=== PATIENT | female | born 1995 | race Hispanic/Latino ===

== ENCOUNTER 2017-05-21 04:27 | Inpatient (IN) | payer MEDICAID ==
[~2017-05-21] VITALS: Ht 157.5 cm; Wt 61.2 kg
[~2017-05-21 04:27] MED LIST: ACET-171 PO; FERR-83 PO; Ibuprofen PO; METO-301 PO; PREN1TAB25 PO
[2017-05-21] MEDS ORDERED: Lactated Ringer's 1,000 ML IV PRN (04:51)
[2017-05-21] MEDS ORDERED: Sodium Chloride LOK Flush 10 mL Syringe IVFLUSH PRN (04:55)
[2017-05-21] MEDS ORDERED: fentaNYL-PF 50 mCg/mL 2 mL Inj IVPUSH PRN (04:55)
[2017-05-21] MEDS ORDERED: Ondansetron 2 mg/mL 2 mL Inj IVPUSH PRN ×2 (04:55→08:55)
[2017-05-21] MEDS ORDERED: Hemorrhage Kit, Post Partum XX ONE ×2 (04:55→11:10)
[2017-05-21] MEDS ORDERED: Carboprost 250 mCg/mL Inj IM PRN ×2 (04:55→11:10)
[2017-05-21] MEDS ORDERED: Methylergonovine 0.2 mg/mL Inj IM PRN ×2 (04:55→11:10)
[2017-05-21] MEDS ORDERED: Oxytocin 10 Unit/mL Inj IM PRN ×2 (04:55→11:10)
[2017-05-21] MEDS ORDERED: Oxytocin 30 Units/500 mL LR 30 UNITS in IV Premix 1 EACH IV PRN ×2 (04:55→11:10)
--- NOTE | 2017-05-21 05:36 | HP ---
[address] [address] HISTORY AND PHYSICAL PATIENT: GONZALES GARCIA : 1995 MR#: [id number] ADMIT: 05/21/2017 JOB ID: [id number] DATE OF ADMISSION: CHIEF COMPLAINT: Contractions. HISTORY OF PRESENTING ILLNESS: This is a 21 years old 2, para 1-0-0-1, at 39 weeks and 0 days, with expected date of delivery of May 28, 2017, dated by 5 weeks and 6 days ultrasound with positive heart rate. The patient presented with complaint of contractions that started around 2 a.m. today. Contractions are regular and strong. Good movement. No loss of fluid. Cervical exam last week was 1-2 cm and on presentation today's exam, cervix is 4 cm. HISTORY: Problem list during this . 1. E. coli UTI with a negative test of cure. 2. Limited care. Missed care visits between 18 weeks and 28 weeks gestation secondary to insurance issues. 3. Urine drug screen negative at 28 weeks. 4. Anemia in . Iron was started for hematocrit of 30, repeat hematocrit 35.5. CONTROL PLAN: Mirena. GYNECOLOGIC HISTORY: Denies history of sexually transmitted infection or abnormal Pap smear. PAST OBSTETRIC HISTORY: 2014 had a spontaneous vaginal delivery at 40 weeks gestation. Delivered a female , weight 8 pounds 3 ounces under epidural anesthesia. Delivery was at [facility] with no complications. PAST MEDICAL HISTORY: History of headache early in the resolved, history of nausea and vomiting early in the resolved. PAST SURGICAL HISTORY: None. FAMILY HISTORY: Noncontributory. MEDICATIONS: Ferrous sulfate, vitamin C, acetaminophen, vitamins. ALLERGIES: No known drug allergies. REVIEW OF SYSTEMS: A 10-point review of systems negative except for the items in the history of presenting illness. PHYSICAL EXAMINATION: Vital signs: Blood pressure 118/77, heart rate 107, respiratory rate 18, temperature 36.9. heart tones baseline 135, moderate variability, positive accelerations, no decelerations. Contractions every 1-3 minutes. General: Alert, oriented to time, place, and person. Head: Normocephalic, atraumatic. Neck is supple. Chest: Equal air entry bilaterally. No added sounds. Cardiovascular: Regular rate and rhythm. Abdomen is gravid. No tenderness. Estimated weight 7 pounds. Cervical exam at presentation 4 cm, 80% effaced, -3 by RNSharonda. LABORATORIES: Blood type is A positive, Rh positive. Antibody screening was negative. RPR nonreactive. HIV nonreactive. Hepatitis B surface antigen nonreactive. One hour glucose screen negative. Group B strep negative on May 05, 2017. Gonorrhea and chlamydia screening negative. Pap smear, October 29, 2016, within normal limits. Quad screen negative for open neural tube defect, Down's syndrome and trisomy 18. Urine drug screening negative at 28 weeks. ASSESSMENT: This is a 21 years old 2, para 1-0-0-1, at 39 weeks and 0 days with active labor. PLAN: Admit with orders and labs. The patient might be considering epidural when needed.
[2017-05-21 05:54] LABS: Mean Corpuscular Hemoglobin 25.6 pg (27.0-35.0); Mean Corpuscular Volume 77.5 fL (81-100)
[2017-05-21] MEDS ORDERED: Lactated Ringer's 500 ML IV ONE (08:54)
[2017-05-21] MEDS ORDERED: Lactated Ringer's 1,000 ML IV SCH ×2 (08:54→11:07)
[2017-05-21] MEDS ORDERED: EPHEDrine Sulfate 50 mg/mL Inj IVPUSH PRN (08:55)
[2017-05-21] MEDS ORDERED: Phenylephrine/NS-PF 100 mCg/mL 5 mL Syringe IVPUSH PRN (08:55)
[2017-05-21] MEDS ORDERED: fentaNYL 2 mCg/mL-Bupiv 0.125% 100 ML EPIDURAL SCH (08:55)
[2017-05-21] MEDS ORDERED: Atropine 1 mg/10 mL (Code) Syringe IVPUSH PRN (08:55)
--- NOTE | 2017-05-21 09:53 | PCM.HPANE ---
Patient Data Date of Service: May 21, 2017 Surgeon Admitting Provider:Guicho Patel MD Attending Provider:Guicho Patel MD Primary Care Physician:Guicho Patel MD Other Provider:Kaur Camara Anesthesia Reason for Visit Term Labor Check TERM LABOR CHECK Ht/WT & BMI Body Mass Index Allergies Coded Allergies: No Known Allergies (Unverified Allergy, Unknown, 06/29/14) Past Anesthesia History Anesthesia History: Denies:: Abnormal Airway Diabetes History Hx Diabetes?: No MRSA MRSA: No Medications Hypertension Medication: No Home Meds Incl Beta Gm: No Active Scripts Metoclopramide (Reglan)10 Mg [id number] Mg PO QID PRN Headache #20 TABLET Ref 0 Prov:Maicol Penn MD 11/10/16 Acetaminophen 500 Mg [id number] Mg PO Q6H PRN For Fever #60 TABLET Prov:Maicol Penn MD 11/10/16 [Ibuprofen] (Motrin)600 MG TABLET No Conflict [id number] Mg PO Q6H PRN For Pain # 30 TABLET Ref 1 Prov:Francois Kwon MD 07/01/14 Reported Medications Ferrous Sulfate 325 Mg [id number] Mg PO BID 30 Days Ref 0 06/29/14 Vit#96/Ferrous Fum/FA ( Tablet)1 Each Tablet1 Each PO DAILY 06/29/14 History History of ENT Problems?: No HEENT History: Denies:: Abnormal Airway Denture Type: None Teeth Condition: Within Normal Limits Hx of Heart Problems?: No Cardiovascular History: Denies:: Congestive Heart Failure Hypertension Hx of Respiratory Problem?: No Respiratory History: Denies:: Tuberculosis Hx Neurologic Problems?: No Hx of GI Problems?: No Hx of Problems?: No Other History/Comment hx previa and pre- hemorrhage with previous Female Hx: Positive for:: Currently Hx Musculoskeletal Problems?: No Hx of Psycho/Social Problems?: No Hx Surgeries?: No Hx Any Other Health Problems?: No Hx Diabetes: No Hx Alcohol Use: NoHx Substance Use: No Smoking Status: Unknown if Ever Smoker Have You Smoked inLast 12 mo: No Stop/Bang Risk Assessment Category Category 1A: Patient has history of documented sleep apnea, and HAS NOT received any narcotic, sedative or anesthesia administration during this stay. Category 1B: Patient has history of documented sleep apnea, and HAS received any narcotic , sedative or anesthesia administration during this stay Category 2: Patient has SUSPECTED Obstructive Sleep Apnea, and HAS received any narcotic , sedative or anesthesia administration during this stay. Category 3: Patient has SUSPECTED Obstructive Sleep Apnea and HAS NOT received narcotic, sedative or anesthesia administration during this stay. Category 4: Outpatient in Procedural Areas with known sleep apnea or who screen positive for High Risk via the STOP/BANG questionnaire. Exam Exam Vital Signs 109/63 80 afebrile rr 19 97% General Appearance: Alert, Oriented X3 HEENT/AIRWAY: MP 2 Lungs: Clear to Auscultation Heart: Exam Unremarkable Meds/Labs/Diagnostics Admission Meds Current Medications Lactated Ringer's (Lr) 1,000 ml @ 125 mls/hr Q8H IV Last administered on t 09:10; Start 05/21/17 at 08:54; Stop 05/22/17 at 08:55 Labs Test 05/21/17 05:10 White Blood Count 8.1th/mm3 (3.8-10.1) Red Blood Count 4.53mil/mm3 (3.90-5.20) Hemoglobin 11.6g/dL (12.0-15.6) Hematocrit 35.1% (35.0-46.0) Mean Corpuscular Volume 77.5fL (81-100) Mean Corpuscular Hemoglobin 25.6pg (27.0-35.0) Mean Corpuscular Hemoglobin Concent 33.0% (32.0-37.0) Red Cell Distribution Width 18.6% (12.3-15.4) Platelet Count 153bil/L (150-400) Plan Impression Patient chart reviewed, patient interviewed and anesthestic plan with risks, benefits, and alternatives discussed, and informed consent obtained. ASA Physical Status: ASA2 Mod Systemic Disease Anesthetic Plan: SAB Bene/Risks/Altern/Consents: Yes (used production support analyst) HP Complete Prior to Induction: Yes Gamal Christensen MD May 21, 2017 09:53
[2017-05-21] MEDS ORDERED: Witch Hazel-Glycerin Pads TOPICAL PRN (11:10)
[2017-05-21] MEDS ORDERED: Benzocaine (Dermoplast) 20% 60 Gm Spray TOPICAL PRN (11:10)
[2017-05-21] MEDS ORDERED: LANOlin HPA 7 Gm Ointment TOPICAL PRN (11:10)
[2017-05-21] MEDS ORDERED: oxyCODONE-Acetamin 5-325 mg Tablet PO PRN (11:10)
--- NOTE | 2017-05-21 14:15 | OP ---
[address] [address] OPERATIVE REPORT PATIENT: GONZALES GARCIA : 1995 MR#: [id number] ADMIT: 05/21/2017 JOB ID: [id number] DATE OF SURGERY: 05/21/2017 PREOPERATIVE DIAGNOSIS(ES): 1. Intrauterine at 39 weeks and 0 days. 2. Active spontaneous labor. POSTOPERATIVE DIAGNOSIS(ES): 1. Intrauterine at 39 weeks and 0 days. 2. Active spontaneous labor. SURGEON: Guicho Patel MD. ADVERTISING JOB TITLES: None. ESTIMATED BLOOD LOSS: 400 mL. FINDINGS: Male infant, delivered in cephalic presentation, in right occiput anterior position with no nuchal cord. Shoulders delivered without difficulty. Meconium stained amniotic fluid. Placenta delivered intact with three-vessel cord. COMPLICATIONS: None. PROCEDURE: This is a 21-year-old 2, para 1-0-0-1 presented at 39 weeks and zero days gestation with active labor on admission. Cervix was 4 cm, 80%, and -3. The patient progressed in labor and found to be completely dilated 5-1/2 hours later, at 10:01. The patient had adequate epidural anesthesia. A trial of pushes initially with no progress, then the patient labored down for 15 minutes, then she started to have an urge to push. She pushed effectively to deliver at 10:41. Delivered a male infant over an intact perineum under epidural anesthesia. Delivered in cephalic presentation with right occiput anterior position. No nuchal cord. Shoulders delivered without difficulty. was placed on the maternal abdomen. Delayed cord clamp was performed. Cord blood was collected for typing. Apgars were 8 and 9 at one and five minutes respectively. Placenta was delivered spontaneously intact with three-vessel cord. Oxytocin was started after delivery of the placenta. Fundal massage was performed. Uterus was firm. First-degree perineal laceration was repaired with a 3-0 Vicryl. In the middle of the repair patient had passed a clot. The uterus was massaged and found to be firming up. Misoprostol 800 mcg was placed rectally prophylactically for hemorrhage and uterine atony. After completion of the perineal repair, the cervix was examined and small clots were removed from the cervical os. Uterus was firm, with minimal bleeding. All instrument, sponge, and needle counts were correct x2. Mother and recovering in the delivery room in stable condition. IGuicho MD, was present and scrubbed for the entire procedure.
[2017-05-21] MEDS ORDERED: Sodium Chloride LOK Flush 10 mL Syringe IVFLUSH SCH (16:30)
[2017-05-21] MEDS: Ascorbic Acid 500 mg Tablet PO SCH (20:21)
[2017-05-22 08:45] LABS: Mean Corpuscular Hemoglobin 25.3 pg (27.0-35.0); Mean Corpuscular Volume 75.8 fL (81-100)
[2017-05-22] MEDS: Ascorbic Acid 500 mg Tablet PO SCH (08:51)
--- NOTE | 2017-05-22 09:34 | PCM.DIOB ---
Obstetrical Disch Instruction Date of Service: May 22, 2017 Dates of Hospitalization Date of Hospital Admission May 21, 2017 at 04:46 Providers Admitting Physician: Guicho Patel MD Primary Care Physician: Guicho Patel MD Attending Physician: Guicho Patel MD Discharge Diagnosis Discharge Diagnosis vaginal delivery PPD1 Problems: Diet Discharge Diet: No restrictions Activity Discharge Activity-General: Pelvic Rest for 6 weeks, Try not to overdue, Be up and about, Balance rest and activity, Activity as pain allows, No lifting >15 pounds for 2 weeks Dressing and Incisional Care Hygiene: May shower, NO bathtub, hot tub or whirlpool Additional Instructions Discharge Instructions Please call office or go to ER if heavy vaginal bleeding, severe abdominal pain , foul smelling discharge, fever more than 100.4 Follow Up Plan Follow Up Plan 6 weeks after delivery Follow-up appointment: Weeks (6) Call your provider for: Fever or Chills, Shortness of breath, Heavy vaginal bleeding, Excessive constipation, Vaginal discomfort, Red painful breasts Meg Reeves MD May 22, 2017 09:34
[2017-05-22] MEDS ORDERED: IBUP800T28 PO (09:36)
[2017-05-22] MEDS ORDERED: DOCU-41 PO (09:36)
[2017-05-22 13:11] VITALS: BP 104/61; PULSE 82; RESP 20
--- NOTE | 2017-05-22 13:18 | DIS ---
[address] [address] DISCHARGE SUMMARY PATIENT: GONZALES GARCIA : 1995 MR#: [id number] ADMIT: 05/21/2017 JOB ID: [id number] DIS: HOSPITAL COURSE: This is a 21-year-old female, status post vaginal delivery. This is day one. She is doing well. Pain is well controlled. Lochia was not heavy. She was able to ambulate well, void well, and tolerated her diet well. PHYSICAL EXAMINATION: She is afebrile. Cardiac: RR. No murmur. Pulmonary: Clear. Blood pressure in normal range. Abdomen: Soft, nontender. Extremities: Nontender. Uterus well contracted, nontender, LABORATORY: Her white count was 11.11. Her H and H /34.1. Her platelet count 149. ASSESSMENT AND PLAN: A 21-year-old female status post vaginal delivery. day one. Doing well. Will discharge her home. Instructions given that if there is heavy vaginal bleeding, severe abdominal pain, foul-smelling discharge, fever more than 100.4, short of breath, she will call the office or go to the ED for evaluation. Ibuprofen and Colace prescribed for p.r.n. for pain and constipation.7
[2017-05-22] MEDS ORDERED: Methylergonovine 0.2 mg/mL Inj ONE (15:29)
== END 2017-05-22 15:30 | disposition home or self-care (01) | DRG 560 ==
LOC: FBCO 04:27 → FBC 04:46
PROVIDERS: ADMIT Obstetrics & Gynecology; ATTEND Obstetrics & Gynecology
PROC: 10E0XZZ Delivery of Products of Conception, External Approach (ICD-10-PCS; principal; 2017-05-21)
PROC: 0HQ9XZZ Repair Perineum Skin, External Approach (ICD-10-PCS; 2017-05-21)
DX: O77.0 Labor and delivery complicated by meconium in amniotic fluid (principal); D64.9 Anemia, unspecified; O99.02 Anemia complicating childbirth; Z3A.39 39 weeks gestation of pregnancy; Z37.0 Single live birth; O70.0 First degree perineal laceration during delivery